=== PATIENT | female | born 1990 | race Caucasian/White ===

== ENCOUNTER 2024-11-27 12:57 | Emergency (ER) | payer MEDICAID, OTHER ==
[~2024-11-27] VITALS: Ht 152.4 cm; Wt 65.8 kg
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
[2024-11-27 15:54] LABS: Urine Protein, UAD Negative (Negative)
[2024-11-27 16:01] VITALS: BP 98/61; PULSE 80; RESP 16; TEMP 97.9; O2SAT 96
== END 2024-11-27 16:03 | disposition home or self-care (01) ==
LOC: ER 12:57
DX: O26.892 Other specified pregnancy related conditions, second trimester (principal); R10.13 Epigastric pain; R42 Dizziness and giddiness; M25.512 Pain in left shoulder; R07.89 Other chest pain; R07.81 Pleurodynia; Z3A.17 17 weeks gestation of pregnancy; V89.2XXA Person injured in unspecified motor-vehicle accident, traffic, initial encounter; Y93.I9 Activity, other involving external motion; Y92.488 Other paved roadways as the place of occurrence of the external cause; Y99.8 Other external cause status
CPT/HCPCS: 76805; 81001